=== PATIENT | female | born 1935 | race Native Hawaiian/Other Pacific Islander ===

== ENCOUNTER 2021-05-24 19:13 | Emergency (ER) | payer OTHER, MEDICARE ==
[~2021-05-24] VITALS: Ht 160 cm; Wt 54.9 kg
[2021-05-24 19:55] LABS: PLATELET COUNT 243 K/uL (152-353)
[2021-05-24 21:01] VITALS: BP 193/76; TEMP 97.2
[2021-05-24] MEDS ORDERED: AMINOFEN500 MG PO (21:49)
[2021-05-24] MEDS ORDERED: TYLENOL325 MG PO (21:51)
[2021-05-24] MEDS ORDERED: ACIDOPHILUS PR100 MG PO (21:52)
[2021-05-24] MEDS ORDERED: ANTI-DIARRHE2 M1 PO (21:53)
[2021-05-24] MEDS ORDERED: ARTHRITIS PAIN650 MG PO (21:55)
[2021-05-24] MEDS ORDERED: DIVALPROEX125 M1 PO (21:56)
[2021-05-24] MEDS ORDERED: DONEPEZIL HYDRO10 M1 PO (21:57)
[2021-05-24] MEDS ORDERED: LORA0.5T17 PO (21:58)
[2021-05-24] MEDS ORDERED: MEMA10TA2 PO (22:00)
[2021-05-24] MEDS ORDERED: SERT50TA PO (22:01)
[2021-05-24] MEDS ORDERED: SYSTANE BAL OTIC (22:02)
== END 2021-05-24 21:01 | disposition still patient (30) ==
LOC: ED 19:18
PROVIDERS: Emergency Medicine Emergency Medical Services
DX: F03.91 Unspecified dementia, unspecified severity, with behavioral disturbance (principal); Z11.52 Encounter for screening for COVID-19; Z04.6 Encounter for general psychiatric examination, requested by authority
CPT/HCPCS: 36415; 80053; 81000; 85027; 87635; 93005; 99283; U0003